=== PATIENT | female | born 1975 | race Caucasian/White ===

== ENCOUNTER 2016-06-03 11:59 | Emergency (ER) | payer OTHER ==
[2016-06-03 13:05] LABS: HEMOGLOBIN 11.5 gm/dl (12.3-15.3); RED BLOOD COUNT 3.99 M/UL (4.00-5.10); WHITE BLOOD COUNT 2.2 K/UL (4.5-11.0)
[2016-06-03 13:27] LABS: BUN/CREATININE RATIO 11 (0-10)
== END 2016-06-03 14:30 | disposition home or self-care (01) ==
LOC: ER1 11:59
PROVIDERS: Physician Assistant
DX: G56.31 Lesion of radial nerve, right upper limb (principal); Z88.0 Allergy status to penicillin; Z88.1 Allergy status to other antibiotic agents; Z88.2 Allergy status to sulfonamides; Z88.5 Allergy status to narcotic agent
CPT/HCPCS: 36415; 70450; 80053; 82550; 82553; 83874; 84484; 85025; 93005; 99284

== ENCOUNTER 2020-10-27 15:31 | Emergency (ER) | payer OTHER ==
[~2020-10-27 15:31] MED LIST: AMBIEN10 MG PO; ARTIFICIAL TEAR15 M2 OP/OT; AZITHROMYCIN250 MG PO; AZITHROMYCIN500 MG PO; BUSPAR 10MG10 MG PO; CARAFATE 1 GM TA1 GM PO; CRESTOR20 MG PO; DOXEPIN HCL150 MG PO; DRONABINOL5 MG PO; ECOTRIN81 MG PO; EFFER-K 10 MEQ10 MEQ PO; ELAVIL 10 MG TA10 MG PO; ESTRACE2 MG PO; ETHAMBUTOL HCL400 MG PO; FENOFIBRATE160 MG PO; FEOSOL325 MG PO; FLORINEF 0.1 M0.1 MG PO; GABAPENTIN400 MG PO; IBU600 MG PO; K-DUR TAB 20 M20 MEQ PO; K-PHOS TAB505 MG PO; KEFLEX CAP 500500 MG PO; KEPPRA 500 MG500 MG PO; KLONOPIN TAB 00.5 MG PO; LABETALOL HCL200 MG PO; LOPRESSOR 25 MG25 MG PO; MS CONTIN30 MG PO; MYCOBUTIN150 MG PO; NORVASC 5 MG TAB5 MG PO; PANTOPRAZOLE SO40 MG PO; PERCOCET 5/325 T1 EA PO; PHENERGAN 25 MG25 M1 PO; POT CL MICRO PO; PROTONIX40 MG PO; RESTASIS1 EACH OP; THERAGRAN M TAB1 EA PO; TIZANIDINE HCL2 M1 PO; TOPROL XL 50 MG50 MG PO; TOPROL XL25 MG PO; TRANDATE 100 M100 MG PO; TRETINOIN10 MG PO; TRIUMEQ TABLET1 EACH PO; TYLENOL 325MG325 MG PO; VISTARIL25 MG PO; ZANAFLEX4 MG PO; ZOCOR40 MG PO; ZOLOFT100 MG PO; ZOLOFT50 MG PO; ZOVIRAX 200 MG200 MG PO
[2020-10-27] MEDS ORDERED: HYDROCODON-ACE1 EAC4 PO (17:17)
[2020-10-27] MEDS ORDERED: CYCLOBENZAPRINE10 MG PO (17:17)
== END 2020-10-27 17:25 | disposition home or self-care (01) ==
LOC: ER1 15:31
DX: S22.089A Unspecified fracture of T11-T12 vertebra, initial encounter for closed fracture (principal); M25.562 Pain in left knee; M54.2 Cervicalgia; I10 Essential (primary) hypertension; V49.40XA Driver injured in collision with unspecified motor vehicles in traffic accident, initial encounter; Y92.410 Unspecified street and highway as the place of occurrence of the external cause
CPT/HCPCS: 71045; 72125; 72128; 72131; 73560; 99284

== ENCOUNTER → 2020-12-07 | Outpatient (CLI) | payer OTHER ==
[~2020-12-07] MED LIST changes: +CYCLOBENZAPRINE10 MG PO; +HYDROCODON-ACE1 EAC4 PO
== END ==
LOC: KOH-I 14:33
DX: R06.02 Shortness of breath (principal)
CPT/HCPCS: 71046